=== PATIENT | female | born 1965 | race Caucasian/White ===

== ENCOUNTER 2018-09-19 22:36 | Emergency (ER) | payer MEDICARE, OTHER ==
[2018-09-19 22:44] VITALS: TEMP 98.3
[2018-09-19] MEDS ORDERED: MORPHINE SULFATE 2 MG/ML SYRINGE IM STA (23:58)
[2018-09-19] MEDS ORDERED: KETOROLAC 30 MG/ML 1 ML VIAL IM STA (23:58)
--- NOTE | 2018-09-20 00:38 | ED ---
Fall HPI - General Chief Complaint: Fall Stated Complaint: Fall Time Seen by Provider: 09/19/18 23:31 Source: patient, EMS Mode of arrival: EMS - History of Present Illness Initial Comments: 52-year-old female patient presents to the emergency department today for evaluation of neck pain following a fall this morning. Patient's states that around 0800 she slipped and fell on the ice. Patient states that she did strike her neck. Patient states she does have a history of extensive neck surgery and is concerned she may have dislodged something. Patient states she is having pain radiating down the right arm with this. Denies any numbness or tingling to her upper extremities. States that the pain from her neck is also radiating up into her head causing headache. She states that she did strike her head but denies any loss of consciousness. She denies any blurred or double vision. Denies any nausea or vomiting. Patient states that she did take muscle relaxers and Xanax as well as applied Biofreeze to the neck with out any relief of symptoms. She denies any other injuries. Patient denies any back pain, chest pain, shortness of breath, dizziness, weakness, abdominal pain , nausea, vomiting, or difficulties with bowel movements or urination. - Related Data Home Medications Medication Instructions Recorded Confirmed ALPRAZolam [Xanax] 1 mg PO TID PRN 12/23/15 09/19/18 Sertraline [Zoloft] 100 mg PO DAILY 12/23/15 09/19/18 ARIPiprazole [Abilify] 2 mg PO DAILY 09/19/18 09/19/18 Albuterol Inhaler [Ventolin Hfa 1 - 2 puff INHALATION RT-Q6H PRN 09/19/18 Inhaler] Cholecalciferol [Vitamin D3] 5,000 unit PO DAILY 09/19/18 09/19/18 Methocarbamol [Robaxin] 500 mg PO TID PRN 09/19/18 09/19/18 Phentermine HCl [Adipex-P] 37.5 mg PO DAILY PRN 09/19/18 09/19/18 Previous Rx's Medication Instructions Recorded Acetaminophen-Codeine 300-30mg 1 tab PO Q6H PRN #12 tablet 09/20/18 [Tylenol #3] Allergies Allergy/AdvReac Type Severity Reaction Status Date / Time Sulfa (Sulfonamide Allergy Rash/Hives Verified 09/19/18 22:48 Antibiotics) prochlorperazine AdvReac Seizure Verified 09/19/18 22:48 [From Compazine] prochlorperazine edisylate AdvReac Seizure Verified 09/19/18 22:48 [From Compazine] prochlorperazine maleate AdvReac Seizure Verified 09/19/18 22:48 [From Compazine] Review of Systems ROS Statement: Those systems with pertinent positive or pertinent negative responses have been documented in the HPI. ROS Other: All systems not noted in ROS Statement are negative. Past Medical History Past Medical History: No Reported History Additional Past Medical History / Comment(s): chronic back pain History of Any Multi-Drug Resistant Organisms: None Reported Past Surgical History: Back Surgery, Tonsillectomy, Uterine Ablation Additional Past Surgical History / Comment(s): neck surgery Past Psychological History: Anxiety, Depression, PTSD Smoking Status: Current every day smoker Past Alcohol Use History: Occasional Past Drug Use History: Marijuana General Exam Limitations: no limitations General appearance: alert, in no apparent distress, other (This is a well- developed, well-nourished adult female patient in no acute distress. Vital signs upon presentation are temperature 98.3F, pulse 89, respirations 18, blood pressure 138/84, pulse ox 95% on room air.) Eye exam: Present: normal appearance, PERRL, EOMI. Absent: scleral icterus, conjunctival injection, periorbital swelling ENT exam: Present: normal exam, normal oropharynx, mucous membranes moist Neck exam: Present: normal inspection, tenderness (Tenderness over C2-C3 area. No bony step-off or deformity noted.). Absent: meningismus, full ROM (C-collar in place), lymphadenopathy Respiratory exam: Present: normal lung sounds bilaterally. Absent: respiratory distress, wheezes, rales, rhonchi, stridor Cardiovascular Exam: Present: regular rate, normal rhythm, normal heart sounds. Absent: systolic murmur, diastolic murmur, rubs, gallop, clicks GI/Abdominal exam: Present: soft, normal bowel sounds. Absent: distended, tenderness, guarding, rebound, rigid Extremities exam: Present: normal inspection, full ROM, normal capillary refill , other (Skin to the upper and lower extremities is pink, warm, and dry. Cap refills less than 3 seconds. Pedal and posttibial pulses are 2+ and equal bilaterally. Radial pulses 2+ and equal bilaterally.). Absent: tenderness, pedal edema, joint swelling, calf tenderness Back exam: Present: normal inspection, other (Nontender, no step-off, no deformity to firm midline palpation of the thoracic and lumbar vertebrae. Full range of motion without pain or limitation.). Absent: vertebral tenderness Neurological exam: Present: alert, oriented X3, CN II-XII intact, other ( Strength in the upper extremities is 4/5.) Psychiatric exam: Present: normal affect, normal mood Skin exam: Present: warm, dry, intact, normal color. Absent: rash Course Vital Signs 09/19/18 09/20/18 09/20/18 22:41 01:10 02:06 Temperature 98.3 F Pulse Rate 89 79 76 Respiratory 18 18 16 Rate Blood Pressure 138/84 127/82 131/94 O2 Sat by Pulse 95 95 97 Oximetry Medical Decision Making - Medical Decision Making 52-year-old female patient presents to the emergency department today for evaluation of neck pain after experiencing a slip and fall accident this morning. Physical examination did reveal tenderness over the C2-C3 vertebral bodies. She had no bony step-off or deformity noted. She was neurologically intact with no focal deficits. She is neurovascularly intact in the upper extremities. CT brain and C-spine were obtained, showed no acute intracranial or cervical abnormalities. Cervical fusion hardware is intact. I did discuss findings and results with the patient. Symptoms are consistent with cervical strain. She does have muscle relaxer at home, we will prescribe Tylenol with codeine for pain control. She is instructed to continue gentle range of motion , heat application, and use of Biofreeze. She is instructed to follow-up with her orthopedic physician and her primary care physician for recheck as soon as possible. Return parameters were discussed in detail. She verbalizes understanding and agrees with this plan. - Radiology Data Radiology results: report reviewed, image reviewed Computed tomography scan of the brain and C-spine were obtained. Report was reviewed in its entirety. Impression by Dr. Scott shows no intracranial hemorrhage, mass effect, or calvarial fracture. No fracture or malalignment the cervical spine. Spondylosis. Status post anterior cervical disc fusion intervertebral disc space or C5 to C7. Disposition Clinical Impression: Cervical strain Disposition: HOME SELF-CARE Condition: Good Instructions (If sedation given, give patient instructions): Cervical Strain ( ED) Additional Instructions: Continue medications as directed. Follow up with your skin care specialist as soon as possible. Return to the emergency department for any new, worsening, or concerning symptoms. Prescriptions: Acetaminophen-Codeine 300-30mg [Tylenol #3] 1 tab PO Q6H PRN #12 tablet PRN Reason: Pain Is patient prescribed a controlled substance at d/c from ED?: No Referrals: Qasim Pablo DO [Primary Care Provider] - 1-2 days Time of Disposition: 02:01
--- NOTE | 2018-09-20 01:45 | CT ---
History: ITS.REASON CT Reason: Pain Exam: CT HEAD Without Contrast Technique more: CTDI is 45.2 mGy and DLP is 1028 mGy-cm. Technique more: This CT exam was performed using one or more of the following dose reduction techniques: automated exposure control, adjustment of the mA and/or kV according to patient size, and/or use of iterative reconstruction technique. Comparison: None available FINDINGS: No intracranial hemorrhage, mass effect or calvarial fracture. The ventricles are within limits and midline. The warren-white differentiation appears within limits. The paranasal sinuses, mastoids and orbits appear within limits. IMPRESSION: No intracranial hemorrhage, mass effect or calvarial fracture. Exam: CT C SPINE Without Contrast Technique more: CTDI is 8.6 mGy and DLP is 234.7 mGy-cm. Technique more: This CT exam was performed using one or more of the following dose reduction techniques: automated exposure control, adjustment of the mA and/or kV according to patient size, and/or use of iterative reconstruction technique. Comparison: None available FINDINGS: No fracture or malalignment. Spondylosis. Status post anterior cervical disc fusion and intervertebral disc spacers C5-C7. Visualized upper lungs appear clear. IMPRESSION: No fracture or malalignment. Spondylosis. Status post anterior cervical disc fusion and intervertebral disc spacers C5-C7.
[2018-09-20 02:08] VITALS: BP 131/94; PULSE 76; RESP 16
== END 2018-09-20 02:09 | disposition home or self-care (01) ==
LOC: EC 22:36 → MERGE 22:36 → EC 09-20 02:09
DX: S16.1XXA Strain of muscle, fascia and tendon at neck level, initial encounter (principal); R51 Headache; F41.9 Anxiety disorder, unspecified; F32.9 Major depressive disorder, single episode, unspecified; F43.10 Post-traumatic stress disorder, unspecified; F17.200 Nicotine dependence, unspecified, uncomplicated; Z98.890 Other specified postprocedural states; Z79.899 Other long term (current) drug therapy; Z88.2 Allergy status to sulfonamides; Z88.8 Allergy status to other drugs, medicaments and biological substances; W00.0XXA Fall on same level due to ice and snow, initial encounter; Y92.89 Other specified places as the place of occurrence of the external cause
CPT/HCPCS: 72125; 70450; 99284; 96372 ×2; J1885; J2270

== ENCOUNTER → 2019-04-12 | Outpatient (CLI) | payer MEDICARE ==
[2019-04-12 13:17] LABS: Basophils % (A) 1 %; Eosinophils # (A) 0.1 k/uL (0-0.7); Eosinophils % (A) 2 %; HCT 47.7 % (34.0-46.0); HGB 15.4 gm/dL (11.4-16.0); Lymphocytes % (A) 33 %; MCH 28.9 pg (25.0-35.0); MCHC 32.3 g/dL (31.0-37.0); MCV 89.6 fL (80.0-100.0); Mean Platelet Volume 7.3; Monocytes # (A) 0.2 k/uL (0-1.0); Monocytes % (A) 4 %; Neutrophils # (A) 3.6 k/uL (1.3-7.7); Neutrophils % (A) 59 %; Platelet Count 218 k/uL (150-450); RBC 5.32 m/uL (3.80-5.40); RDW 14.1 % (11.5-15.5); WBC 6.1 k/uL (3.8-10.6)
[2019-04-12 19:13] LABS: Vitamin D 25 Hydroxy 32.8 ng/mL (30.0-100.0)
[2019-04-12 19:49] LABS: Albumin 4.8 g/dL (3.80-4.90); Albumin/Globulin Ratio 2.53 (1.60-3.17); Anion Gap 8.8 mmol/L (4.00-12.00); Calcium 9.6 mg/dL (8.7-10.3); Carbon Dioxide 27.2 mmol/L (21.6-31.8); Chol/HDL Ratio 2.36; Globulin 1.9 g/dL (1.6-3.3); LDL Cholesterol,Calculated 107.4 mg/dL (0.0-131.0); Non-African American GFR(CKD) 72.5 (60.0-200.0); Potassium 4.7 mmol/L (3.5-5.5); Total Bilirubin 0.3 mg/dL (0.2-1.2); Total Protein 6.7 g/dL (6.2-8.2); Uric Acid 6.1 mg/dL (2.9-7.7); VLDL Calculation 31.6 mg/dL (5.00-40.00)
[2019-04-12 20:09] LABS: Hepatitis C IgG Antibody Non-Reactive (Non-Reactive)
[2019-04-12 20:47] LABS: Hemoglobin A1C 5.8 % (4.0-6.0)
== END | disposition home or self-care (01) ==
LOC: LABWHC1 11:31
PROVIDERS: ATTEND Internal Medicine
DX: Z00.00 Encounter for general adult medical examination without abnormal findings (principal); E55.9 Vitamin D deficiency, unspecified; R79.9 Abnormal finding of blood chemistry, unspecified; R53.83 Other fatigue; E88.9 Metabolic disorder, unspecified; E78.9 Disorder of lipoprotein metabolism, unspecified; E07.9 Disorder of thyroid, unspecified; R73.09 Other abnormal glucose; Z20.9 Contact with and (suspected) exposure to unspecified communicable disease; Z11.59 Encounter for screening for other viral diseases
CPT/HCPCS: 36415; 80053; 80061; 82306; 83036; 84439; 84443; 84550; 85025; 86803

== ENCOUNTER 2019-12-09 05:03 | Emergency (ER) | payer MEDICARE ==
[2019-12-09 05:09] VITALS: BP 143/81; PULSE 85; RESP 18; TEMP 97.7
[2019-12-09] MEDS ORDERED: KETOROLAC 60 MG/2 ML VIAL IM STA (05:40)
[2019-12-09] MEDS ORDERED: ORPHENADRINE 30 MG/ML 2 ML VIAL IM STA (05:40)
--- NOTE | 2019-12-09 05:44 | ED ---
Back Pain [facility] - General Chief Complaint: Back Pain/Injury Stated Complaint: back/neck pain Time Seen by Provider: 12/09/19 05:26 Source: patient Limitations: no limitations - History of Present Illness Initial Comments: This patient is a 54-year-old woman who presents to be evaluated for bilateral low back pain. She states it has been coming on and getting progressively worse over the past day. The day prior she states she had done some yard work for some older neighbors, and she believes that this provoke the pain. She states that the muscles in her back feels tight and she is not able to bend or move well. The patient denies any radiation to the legs. No numbness or weakness of the legs. No saddle anesthesia. There is no abdominal pain. No change in bladder or bowel movements. MD Complaint: back pain Onset/Timin -: days(s) Similar Symptoms Previously: Yes Place: home Severity: severe Quality: aching Consistency: constant Improves With: none Worsens With: sitting upright Associated Symptoms: denies other symptoms - Related Data Home Medications Medication Instructions Recorded Confirmed ALPRAZolam [Xanax] 1 mg PO TID PRN 12/23/15 09/19/18 Sertraline [Zoloft] 100 mg PO DAILY 12/23/15 09/19/18 ARIPiprazole [Abilify] 2 mg PO DAILY 09/19/18 09/19/18 Albuterol Inhaler (Mhu) [Ventolin 1 - 2 puff INHALATION RT-Q6H PRN 09/19/18 09/19/18 Hfa Inhaler] Cholecalciferol [Vitamin D3] 5,000 unit PO DAILY 09/19/18 09/19/18 Methocarbamol [Robaxin] 500 mg PO TID PRN 09/19/18 09/19/18 Phentermine HCl [Adipex-P] 37.5 mg PO DAILY PRN 09/19/18 09/19/18 Previous Rx's Medication Instructions Recorded Acetaminophen-Codeine 300-30mg 1 tab PO Q6H PRN #12 tablet 09/20/18 [Tylenol #3] Ibuprofen [Motrin] 600 mg PO Q8HR PRN #20 tab 12/09/19 Methocarbamol [Robaxin-750] 750 mg PO TID PRN #30 tablet 05/11/20 Allergies Allergy/AdvReac Type Severity Reaction Status Date / Time Sulfa (Sulfonamide Allergy Rash/Hives Verified 12/09/19 05:09 Antibiotics) prochlorperazine AdvReac Seizure Verified 12/09/19 05:09 [From Compazine] prochlorperazine edisylate AdvReac Seizure Verified 12/09/19 05:09 [From Compazine] prochlorperazine maleate AdvReac Seizure Verified 12/09/19 05:09 [From Compazine] Review of Systems ROS Statement: Those systems with pertinent positive or pertinent negative responses have been documented in the HPI. ROS Other: All systems not noted in ROS Statement are negative. Constitutional: Denies: fever, chills Respiratory: Denies: cough, dyspnea Cardiovascular: Denies: chest pain, palpitations, edema Gastrointestinal: Denies: abdominal pain, nausea, vomiting, diarrhea, constipation Genitourinary: Denies: dysuria, frequency, hematuria Musculoskeletal: Reports: as per HPI, back pain Skin: Denies: rash Neurological: Denies: headache, weakness, numbness, paresthesias Past Medical History Past Medical History: No Reported History Additional Past Medical History / Comment(s): chronic back pain History of Any Multi-Drug Resistant Organisms: None Reported Past Surgical History: Back Surgery, Tonsillectomy, Uterine Ablation Additional Past Surgical History / Comment(s): neck surgery Past Psychological History: Anxiety, Depression, PTSD Smoking Status: Current every day smoker Past Alcohol Use History: Occasional Past Drug Use History: Marijuana General Exam Limitations: no limitations General appearance: alert, in no apparent distress Head exam: Present: atraumatic, normocephalic Neck exam: Present: normal inspection, full ROM. Absent: tenderness, meningismus Respiratory exam: Present: normal lung sounds bilaterally. Absent: respiratory distress, wheezes, rales, rhonchi, stridor Cardiovascular Exam: Present: regular rate, normal rhythm, normal heart sounds. Absent: systolic murmur, diastolic murmur, rubs, gallop GI/Abdominal exam: Present: soft, normal bowel sounds. Absent: tenderness, guar ding, rebound, rigid, mass, pulsatile mass, hernia Extremities exam: Present: normal inspection, normal capillary refill. Absent: pedal edema, calf tenderness Back exam: Present: normal inspection, muscle spasm, paraspinal tenderness. Absent: CVA tenderness (R), CVA tenderness (L) Neurological exam: Present: alert, reflexes normal. Absent: motor sensory deficit Skin exam: Present: warm, dry, intact, normal color. Absent: rash Course Vital Signs 12/09/19 05:04 Temperature 97.7 F Pulse Rate 85 Respiratory 18 Rate Blood Pressure 143/81 O2 Sat by Pulse 99 Oximetry Disposition Clinical Impression: Mechanical back pain Disposition: HOME SELF-CARE Condition: Good Instructions (If sedation given, give patient instructions): Acute Low Back Pain (ED) Prescriptions: Ibuprofen [Motrin] 600 mg PO Q8HR PRN #20 tab PRN Reason: Pain Methocarbamol [Robaxin-750] 750 mg PO TID PRN #30 tablet PRN Reason: pain Is patient prescribed a controlled substance at d/c from ED?: No Referrals: Qasim Pablo DO [Primary Care Provider] - 1-2 days
== END 2019-12-09 06:14 | disposition home or self-care (01) ==
LOC: EC 05:03
DX: M54.5 Low back pain (principal); M62.830 Muscle spasm of back; F41.9 Anxiety disorder, unspecified; F32.9 Major depressive disorder, single episode, unspecified; F43.10 Post-traumatic stress disorder, unspecified; F17.200 Nicotine dependence, unspecified, uncomplicated; Z79.899 Other long term (current) drug therapy; Z98.890 Other specified postprocedural states; Z88.2 Allergy status to sulfonamides; Z88.8 Allergy status to other drugs, medicaments and biological substances
CPT/HCPCS: 99283; 96372 ×2; J2360; J1885

== ENCOUNTER 2019-12-10 07:03 | Emergency (ER) | payer MEDICARE ==
[2019-12-10] MEDS ORDERED: DIAZEPAM 5 MG/ML 2 ML INJ IM ONE (07:26)
[2019-12-10] MEDS ORDERED: KETOROLAC 60 MG/2 ML VIAL IM STA (07:26)
[2019-12-10 07:47] VITALS: RESP 16
--- NOTE | 2019-12-10 07:47 | ED ---
General Adult HPI - General Chief complaint: Abdominal Pain Stated complaint: Neck pain Time Seen by Provider: 12/10/19 07:05 Source: patient, RN notes reviewed Mode of arrival: wheelchair Limitations: no limitations - History of Present Illness Initial comments: This is a 54-year-old female who presents emergency Department complaining of back pain. Patient states she was here yesterday but the Motrin upsets her stomach and the muscle relaxant she was given causes or diarrhea. Patient states 2 days ago she was outside doing some yard work that she know she shouldn't do because she has a chronic back issue and now 2 days in row she woke up and had lower back pain that goes up worse both sides of her spine to her shoulders. Patient states she knows it's muscular but it's very hard to move without pain and quite a bit of pain. Patient denies any numbness or focal weakness. Patient denies any direct trauma. Patient denies any fall. - Related Data Home Medications Medication Instructions Recorded Confirmed ALPRAZolam [Xanax] 1 mg PO TID PRN 12/23/15 09/19/18 Sertraline [Zoloft] 100 mg PO DAILY 12/23/15 09/19/18 ARIPiprazole [Abilify] 2 mg PO DAILY 09/19/18 09/19/18 Albuterol Inhaler (Mhu) [Ventolin 1 - 2 puff INHALATION RT-Q6H PRN 09/19/18 09/19/18 Hfa Inhaler] Cholecalciferol [Vitamin D3] 5,000 unit PO DAILY 09/19/18 09/19/18 Methocarbamol [Robaxin] 500 mg PO TID PRN 09/19/18 09/19/18 Phentermine HCl [Adipex-P] 37.5 mg PO DAILY PRN 09/19/18 09/19/18 Previous Rx's Medication Instructions Recorded Acetaminophen-Codeine 300-30mg 1 tab PO Q6H PRN #12 tablet 09/20/18 [Tylenol #3] Ibuprofen [Motrin] 600 mg PO Q8HR PRN #20 tab 12/09/19 Methocarbamol [Robaxin-750] 750 mg PO TID PRN #30 tablet 12/09/19 Cyclobenzaprine [Flexeril] 10 mg PO TID #20 tab 12/10/19 Allergies Allergy/AdvReac Type Severity Reaction Status Date / Time Sulfa (Sulfonamide Allergy Rash/Hives Verified 12/09/19 05:09 Antibiotics) prochlorperazine AdvReac Seizure Verified 12/09/19 05:09 [From Compazine] prochlorperazine edisylate AdvReac Seizure Verified 12/09/19 05:09 [From Compazine] prochlorperazine maleate AdvReac Seizure Verified 12/09/19 05:09 [From Compazine] Review of Systems ROS Statement: Those systems with pertinent positive or pertinent negative responses have been documented in the HPI. ROS Other: All systems not noted in ROS Statement are negative. Past Medical History Past Medical History: No Reported History Additional Past Medical History / Comment(s): chronic back pain History of Any Multi-Drug Resistant Organisms: None Reported Past Surgical History: Back Surgery, Tonsillectomy, Uterine Ablation Additional Past Surgical History / Comment(s): neck surgery Past Psychological History: Anxiety, Depression, PTSD Smoking Status: Current every day smoker Past Alcohol Use History: Occasional Past Drug Use History: Marijuana General Exam - General Exam Comments Initial Comments: GENERAL: Patient is well-developed and well-nourished. Patient is nontoxic and well- hydrated and is in mild distress. ENT: Neck is soft and supple. No significant lymphadenopathy is noted. Oropharynx is clear. Moist mucous membranes. EYES: The sclera were anicteric and conjunctiva were pink and moist. Extraocular movements were intact and pupils were equal round and reactive to light. Eyelids were unremarkable. PULMONARY: Unlabored respirations. Good breath sounds bilaterally. No audible rales rhonchi or wheezing was noted. CARDIOVASCULAR: There is a regular rate and rhythm without any murmurs gallops or rubs. ABDOMEN: Soft and nontender with normal bowel sounds. SKIN: Skin is clear with no lesions or rashes and otherwise unremarkable. NEUROLOGIC: Patient is alert and oriented x3. Cranial nerves II through XII are grossly intact. Motor and sensory are also intact. Normal speech, volume and content. Symmetrical smile. MUSCULOSKELETAL: Normal extremities with adequate strength and full range of motion. Patient has paraspinous muscle tenderness on palpation there is no tenderness along the spine. Patient's full range motion of her neck. LYMPHATICS: No significant lymphadenopathy is noted PSYCHIATRIC: Normal psychiatric evaluation. Limitations: no limitations Course Vital Signs 12/10/19 12/10/19 07:26 07:40 Temperature 97.7 F Pulse Rate 119 H 86 Respiratory 18 16 Rate Blood Pressure 120/104 112/67 O2 Sat by Pulse 96 99 Oximetry Medical Decision Making - Medical Decision Making Patient received Valium and Toradol was doing much better. I went into the room twice to evaluate and she was sleeping both times. When I awoke her she stated she felt much improved. Disposition Clinical Impression: Mechanical back pain Disposition: HOME SELF-CARE Condition: Good Instructions (If sedation given, give patient instructions): Acute Low Back Pain (ED) Prescriptions: Cyclobenzaprine [Flexeril] 10 mg PO TID #20 tab Is patient prescribed a controlled substance at d/c from ED?: No Referrals: Qasim Pablo DO [Primary Care Provider] - 1-2 days Time of Disposition: 08:48
[2019-12-10 07:49] VITALS: TEMP 97.7
[2019-12-10 09:32] VITALS: BP 123/87; PULSE 62
== END 2019-12-10 09:30 | disposition home or self-care (01) ==
LOC: EC 07:03
DX: M54.9 Dorsalgia, unspecified (principal); R10.9 Unspecified abdominal pain; M54.2 Cervicalgia; F41.9 Anxiety disorder, unspecified; F32.9 Major depressive disorder, single episode, unspecified; F17.200 Nicotine dependence, unspecified, uncomplicated; Z79.899 Other long term (current) drug therapy; Z88.2 Allergy status to sulfonamides; Z88.8 Allergy status to other drugs, medicaments and biological substances
CPT/HCPCS: 99283; 96372 ×2; J3360; J1885

== ENCOUNTER → 2021-02-26 | Outpatient (CLI) | payer MEDICARE ==
[2021-02-26 10:02] LABS: Appearance,Urine Clear (Clear); Bacteria,Urine Rare /hpf; Bilirubin,Urine Negative (Negative); Blood,Urine Trace (Negative); Color,Urine Yellow; Glucose,Urine (UA) Negative (Negative); Hyaline Casts,Urine 7 /lpf (0-2); Ketones,Urine Negative (Negative); Leukocyte Esterase,Urine Small (Negative); Mucus,Urine Occasional /hpf; Nitrite,Urine Negative (Negative); PH, Urine 5.5 (5.0-8.0); Protein,Urine Trace (Negative); RBC,Urine 3 /hpf (0-5); Specific Gravity,Urine 1.026 (1.001-1.035); Squamous Epithelial Cell,Urine 3 /hpf (0-4); Urobilinogen,Urine <2.0 mg/dL (<2.0); WBC,Urine 7 /hpf (0-5)
[2021-02-26 15:54] LABS: Basophils # (A) 0.03 X 10*3/uL (0.00-0.10); Basophils % (A) 0.5 %; Eosinophils # (A) 0.08 X 10*3/uL (0.04-0.35); Eosinophils % (A) 1.3 %; HCT 45.7 % (37.2-46.3); Lymphocytes # (A) 1.72 X 10*3/uL (0.90-5.00); MCH 28.9 pg (27.0-32.0); MCHC 30.6 g/dL (32.0-37.0); MCV 94.4 fL (80.0-97.0); Mean Platelet Volume 11.5 fL (9.5-12.2); Monocytes # (A) 0.49 X 10*3/uL (0.20-1.00); Monocytes % (A) 7.7 %; Neutrophils # (A) 4.01 X 10*3/uL (1.80-7.70); Platelet Count 183 X 10*3/uL (140-440); RBC 4.84 X 10*6/uL (4.10-5.20); RDW 14.6 % (11.5-14.5); WBC 6.36 X 10*3/uL (4.50-10.00)
[2021-02-26 20:33] LABS: African American GFR (CKD) 95.5 (60.0-200.0); Albumin 4.8 g/dL (3.80-4.90); Albumin/Globulin Ratio 2.09 (1.60-3.17); Anion Gap 10.6 mmol/L (4.00-12.00); BUN/Creat Ratio 28.75 Ratio (12.00-20.00); Calcium 9.2 mg/dL (8.7-10.3); Carbon Dioxide 26.4 mmol/L (21.6-31.8); Chol/HDL Ratio 2.33; Globulin 2.3 g/dL (1.6-3.3); LDL Cholesterol,Calculated 100.8 mg/dL (0.0-131.0); Non-African American GFR(CKD) 82.4 (60.0-200.0); Potassium 4.1 mmol/L (3.5-5.5); Total Bilirubin 0.7 mg/dL (0.3-1.2); Total Protein 7.1 g/dL (6.2-8.2); Uric Acid 3.8 mg/dL (2.9-7.7); VLDL Calculation 27.2 mg/dL (5.00-40.00)
[2021-02-26 22:42] LABS: Hemoglobin A1C 5.2 % (4.0-6.0)
== END | disposition home or self-care (01) ==
LOC: LABWHC1 08:40
PROVIDERS: ATTEND Internal Medicine
DX: Z00.00 Encounter for general adult medical examination without abnormal findings (principal); Z13.820 Encounter for screening for osteoporosis; Z12.12 Encounter for screening for malignant neoplasm of rectum; Z12.31 Encounter for screening mammogram for malignant neoplasm of breast; Z12.11 Encounter for screening for malignant neoplasm of colon; E55.9 Vitamin D deficiency, unspecified; R53.83 Other fatigue; R39.15 Urgency of urination; R79.9 Abnormal finding of blood chemistry, unspecified; R68.89 Other general symptoms and signs
CPT/HCPCS: 36415; 80053; 80061; 81001; 82306; 83036; 84439; 84443; 84550; 85025

== ENCOUNTER 2022-04-26 01:56 | Emergency (ER) | payer MEDICARE ==
[2022-04-26 02:06] VITALS: RESP 16
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
[2022-04-26 14:21] VITALS: BP 150/86; PULSE 85; TEMP 98
== END 2022-04-26 14:15 | disposition home or self-care (01) ==
LOC: EC 01:56
DX: F43.20 Adjustment disorder, unspecified (principal); Z88.2 Allergy status to sulfonamides; Z88.1 Allergy status to other antibiotic agents; Z88.9 Allergy status to unspecified drugs, medicaments and biological substances
CPT/HCPCS: 82075; 99283

== ENCOUNTER 2022-12-18 06:09 | Emergency (ER) | payer MEDICARE ==
[2022-12-18] MEDS ORDERED: LORazepam 2 MG/ML INJ IV STA (06:32)
[2022-12-18] MEDS ORDERED: ONDANSETRON 4 MG/2 ML VIAL IVP STA (06:32)
[2022-12-18] MEDS ORDERED: SODIUM CHLORIDE 0.9% 1,000 ML IV STA (06:32)
[2022-12-18] MEDS ORDERED: SODIUM CHLORIDE 0.9% 500 ML 500 ML IV STA (06:32)
[2022-12-18 06:49] LABS: Basophils % (A) 0 %; Eosinophils # (A) 0.1 k/uL (0-0.7); Eosinophils % (A) 1 %; HCT 45.6 % (34.0-46.0); HGB 15.4 gm/dL (11.4-16.0); Lymphocytes # (A) 1.4 k/uL (1.0-4.8); Lymphocytes % (A) 11 %; MCH 27.9 pg (25.0-35.0); MCHC 33.8 g/dL (31.0-37.0); MCV 82.3 fL (80.0-100.0); Mean Platelet Volume 8.4; Monocytes # (A) 0.5 k/uL (0-1.0); Monocytes % (A) 4 %; Neutrophils # (A) 10.4 k/uL (1.3-7.7); Neutrophils % (A) 83 %; Platelet Count 238 k/uL (150-450); RBC 5.55 m/uL (3.80-5.40); RDW 13.2 % (11.5-15.5); WBC 12.5 k/uL (3.8-10.6)
[2022-12-18 06:50] LABS: ALT 25 U/L (4-34); AST 35 U/L (14-36); African American GFR (CKD) 70 (>60 ml/min/1.73 sqM); Albumin 5.5 g/dL (3.5-5.0); Alcohol <10 mg/dL; Alkaline Phosphatase 72 U/L (38-126); Anion Gap 20 mmol/L; Blood Urea Nitrogen 29 mg/dL (7-17); Calcium 10.5 mg/dL (8.4-10.2); Carbon Dioxide 23 mmol/L (22-30); Chloride 89 mmol/L (98-107); Glucose 169 mg/dL (74-99); Lipase 136 U/L (23-300); Magnesium 1.5 mg/dL (1.6-2.3); Non-African American GFR(CKD) 61 (>60 ml/min/1.73 sqM); Potassium 4.1 mmol/L (3.5-5.1); Sodium 132 mmol/L (137-145); Total Bilirubin 1.9 mg/dL (0.2-1.3); Total Protein 8.7 g/dL (6.3-8.2)
[2022-12-18] MEDS ORDERED: MAGNESIUM SULFATE-D5W PMX 1 GM in DEXTROSE/WATER 1 100ML.BAG IVPB ONE (06:56)
--- NOTE | 2022-12-18 06:58 | ED ---
Nausea/Vomiting/Diarrhea HPI - General Chief complaint: Nausea/Vomiting/Diarrhea Stated complaint: vomiting Time Seen by Provider: 12/18/22 06:27 Source: patient, RN notes reviewed, old records reviewed Mode of arrival: wheelchair Limitations: no limitations - History of Present Illness Initial comments: 57-year-old female presents emergency Department chief complaint of nausea vomiting, dehydration. Patient states she's been vomiting for last 5 days. Patient states that she has been out of medication state that she had some substitute medication states is not helping. Patient states she is out of her Adderall, Xanax and Zoloft. Patient states her pharmacy did not have her meds ready. Patient states that he has been cramping, vomiting all night. She does complain of intermittent abdominal discomfort but not localized. No fevers or chills no chest pain or shortness of breath. Patient denies any dysuria hematuria patient states she's had minimal stool output - Related Data Home Medications Medication Instructions Recorded Confirmed Sertraline [Zoloft] 150 mg PO DAILY 12/23/15 04/26/22 ALPRAZolam [Xanax] 1 mg PO Q6H PRN 04/26/22 04/26/22 Albuterol Sulfate [Albuterol 1 - 2 puff INHALATION RT-QID PRN 04/26/22 04/26/22 Sulfate Hfa] Dextroamphetamine/Amphetamine 30 mg PO DAILY 04/26/22 04/26/22 [Adderall Xr 30 mg Capsule] Levothyroxine Sodium [Synthroid] 25 mcg PO DAILY 04/26/22 04/26/22 tiZANidine [Zanaflex] 4 mg PO DAILY PRN 04/26/22 04/26/22 Previous Rx's Medication Instructions Recorded Ondansetron Odt [Zofran Odt] 4 mg PO Q8HR PRN #10 tab 12/18/22 Allergies Allergy/AdvReac Type Severity Reaction Status Date / Time Sulfa (Sulfonamide Allergy Rash/Hives Verified 04/26/22 02:06 Antibiotics) bacitracin AdvReac Rash/Hives Verified 04/26/22 02:06 [From Neosporin ([id number])] neomycin AdvReac Rash/Hives Verified 04/26/22 02:06 [From Neosporin ([id number])] polymyxin B AdvReac Rash/Hives Verified 04/26/22 02:06 [From Neosporin ([id number])] prochlorperazine AdvReac Seizure Verified 04/26/22 02:06 [From Compazine] prochlorperazine edisylate AdvReac Seizure Verified 04/26/22 02:06 [From Compazine] prochlorperazine maleate AdvReac Seizure Verified 04/26/22 02:06 [From Compazine] Review of Systems ROS Statement: Those systems with pertinent positive or pertinent negative responses have been documented in the HPI. ROS Other: All systems not noted in ROS Statement are negative. Past Medical History Past Medical History: No Reported History, Thyroid Disorder Additional Past Medical History / Comment(s): chronic back pain History of Any Multi-Drug Resistant Organisms: None Reported Past Surgical History: Back Surgery, Tonsillectomy, Uterine Ablation Additional Past Surgical History / Comment(s): neck surgery Past Psychological History: Anxiety, Depression, PTSD Past Alcohol Use History: Occasional Past Drug Use History: Marijuana General Exam Limitations: no limitations General appearance: alert, in no apparent distress Head exam: Present: atraumatic, normocephalic, normal inspection Eye exam: Present: normal appearance, PERRL, EOMI. Absent: scleral icterus, conjunctival injection, periorbital swelling ENT exam: Present: normal exam, normal oropharynx, mucous membranes moist Neck exam: Present: normal inspection, full ROM. Absent: tenderness, meningismus, lymphadenopathy Respiratory exam: Present: normal lung sounds bilaterally. Absent: respiratory distress, wheezes, rales, rhonchi, stridor Cardiovascular Exam: Present: regular rate, normal rhythm, normal heart sounds. Absent: systolic murmur, diastolic murmur, rubs, gallop, clicks GI/Abdominal exam: Present: soft, tenderness (Minimal diffuse), normal bowel sounds. Absent: distended, guarding, rebound, rigid Neurological exam: Present: alert Skin exam: Present: warm, dry, intact, normal color. Absent: rash Course Vital Signs 12/18/22 12/18/22 12/18/22 06:20 06:24 07:30 Temperature 98.3 F Pulse Rate 99 104 H Respiratory 20 18 Rate Blood Pressure 145/107 163/96 149/97 O2 Sat by Pulse 98 99 Oximetry Medical Decision Making - Medical Decision Making Was pt. sent in by a medical professional or institution (, ANNALISA, ENGINE SETTER, urgent care, hospital, or senior living...) When possible be specific @ -No Did you speak to anyone other than the patient for history (EMS, parent, family, police, friend...)? What history was obtained from this source @ -No Did you review nursing and triage notes (agree or disagree)? Why? @ -I reviewed and agree with nursing and triage notes Were old charts reviewed (outside hosp., previous admission, EMS record, old EKG, old radiological studies, urgent care reports/EKG's, senior living records)? Report findings @ -Laboratory studies and medications Differential Diagnosis (chest pain, altered mental status, abdominal pain women, abdominal pain men, vaginal bleeding, weakness, fever, dyspnea, syncope, headache, dizziness, GI bleed, back pain, seizure, CVA, palpatations, mental health, musculoskeletal)? @ -Differential Abdominal Pain Women: Appendicitis, Cholecystitis, diverticulosis, ischemic bowel, pancreatitis, hepatitis, UTI, gastroenteritis, AAA, incarcerated hernia, bowel obstruction, constipation, inflammatory bowel, hepatitis, peptic ulcer disease, splenic infarction, perforated viscus, vulvitis, ovarian torsion, PID, kidney stone, placenta abruption, this is not meant to be an all-inclusive listble EKG interpreted by me (3pts min.). @ -None X-rays interpreted by me (1pt min.). @ -None done CT interpreted by me (1pt min.). @ -None done U/S interpreted by me (1pt. min.). @ -None done What testing was considered but not performed or refused? (CT, X-rays, U/S, labs)? Why? @ -None What meds were considered but not given or refused? Why? @ -None Did you discuss the management of the patient with other professionals (professionals i.e. , ANNALISA, ENGINE SETTER, lab, RT, psych nurse, social work specialist, turning sander operator, teacher, real estate officer, mental health case manager)? Give summary @ -No Was smoking cessation discussed for >3mins.? @ -No Was critical care preformed (if so, how long)? @ -No Were there social determinants of health that impacted care today? How? (Homelessness, low income, unemployed, alcoholism, drug addiction, transportation, low edu. Level, literacy, decrease access to med. care, usp, rehab)? @ -No Was there de-escalation of care discussed even if they declined (Discuss DNR or withdrawal of care, Hospice)? DNR status @ -No What co-morbidities impacted this encounter? (DM, HTN, Smoking, COPD, CAD, Cancer, CVA, ARF, Chemo, Hep., AIDS, mental health diagnosis, sleep apnea, morbid obesity)? @ -Hypothyroidism, ADHD, anxiety Was patient admitted / discharged? Hospital course, mention meds given and route, prescriptions, significant lab abnormalities, going to OR and other pertinent info. @ -Discharged patient's laboratory studies reveal Mild hypomagnesemia, , no ketones no signs of dehydration. Patient does have THC noted on drug screen. Laboratory studies otherwise unremarkable. Patient hydrated with 2 L of fluid, given magnesium, antiemetics feels improved. Patient discharged with antiemet ics return parameters were discussed. Undiagnosed new problem with uncertain prognosis? @ -No Drug Therapy requiring intensive monitoring for toxicity (Heparin, Nitro, Insulin, Cardizem)? @ -No Were any procedures done? @ -No Diagnosis/symptom? @ -Nausea vomiting Acute, or Chronic, or Acute on Chronic? @ -Acute Uncomplicated (without systemic symptoms) or Complicated (systemic symptoms)? @ -Uncomplicated Side effects of treatment? @ -No Exacerbation, Progression, or Severe Exacerbation? @ -No Poses a threat to life or bodily function? How? (Chest pain, [place], [place], pneumonia, PE, COPD, DKA, ARF, appy, cholecystitis, CVA, Diverticulitis, Homicidal, Suicidal, threat to staff... and all critical care pts) @ -No - Lab Data Result diagrams: 12/18/22 06:34 12/18/22 06:34 Lab Results 12/18/22 12/18/22 12/18/22 Range/Units 06:34 06:34 08:03 WBC 12.5 H (3.8-10.6) k/uL RBC 5.55 H (3.80-5.40) m/uL Hgb 15.4 (11.4-16.0) gm/dL Hct 45.6 (34.0-46.0) % MCV 82.3 (80.0-100.0) fL MCH 27.9 (25.0-35.0) pg MCHC 33.8 (31.0-37.0) g/dL RDW 13.2 (11.5-15.5) % Plt Count 238 (150-450) k/uL MPV 8.4 Neutrophils % 83 % Lymphocytes % 11 % Monocytes % 4 % Eosinophils % 1 % Basophils % 0 % Neutrophils # 10.4 H (1.3-7.7) k/uL Lymphocytes # 1.4 (1.0-4.8) k/uL Monocytes # 0.5 (0-1.0) k/uL Eosinophils # 0.1 (0-0.7) k/uL Basophils # 0.0 (0-0.2) k/uL Sodium 132 L (137-145) mmol/L Potassium 4.1 (3.5-5.1) mmol/L Chloride 89 L (98-107) mmol/L Carbon Dioxide 23 (22-30) mmol/L Anion Gap 20 mmol/L BUN 29 H (7-17) mg/dL Creatinine 1.02 (0.52-1.04) mg/dL Est GFR (CKD-EPI)AfAm 70 (>60 ml/min/1.73 sqM) Est GFR (CKD-EPI)NonAf 61 (>60 ml/min/1.73 sqM) Glucose 169 H (74-99) mg/dL Calcium 10.5 H (8.4-10.2) mg/dL Magnesium 1.5 L (1.6-2.3) mg/dL Total Bilirubin 1.9 H (0.2-1.3) mg/dL AST 35 (14-36) U/L ALT 25 (4-34) U/L Alkaline Phosphatase 72 (38-126) U/L Total Protein 8.7 H (6.3-8.2) g/dL Albumin 5.5 H (3.5-5.0) g/dL Lipase 136 (23-300) U/L Urine Color Light Yellow Urine Appearance Clear (Clear) Urine pH 6.5 (5.0-8.0) Ur Specific Carver 1.004 (1.001-1.035) Urine Protein Negative (Negative) Urine Glucose (UA) Negative (Negative) Urine Ketones Negative (Negative) Urine Blood Negative (Negative) Urine Nitrite Negative (Negative) Urine Bilirubin Negative (Negative) Urine Urobilinogen <2.0 (<2.0) mg/dL Ur Leukocyte Esterase Negative (Negative) Urine Opiates Screen Not Detected (NotDetected) Ur Oxycodone Screen Not Detected (NotDetected) Urine Methadone Screen Not Detected (NotDetected) Ur Propoxyphene Screen Not Detected (NotDetected) Ur Barbiturates Screen Not Detected (NotDetected) U Tricyclic Antidepress Not Detected (NotDetected) Ur Phencyclidine Scrn Not Detected (NotDetected) Ur Amphetamines Screen Not Detected (NotDetected) U Methamphetamines Scrn Not Detected (NotDetected) U Benzodiazepines Scrn Not Detected (NotDetected) Urine Cocaine Screen Not Detected (NotDetected) U Marijuana (THC) Screen Detected H (NotDetected) Serum Alcohol <10 mg/dL Disposition Clinical Impression: Nausea & vomiting Disposition: HOME SELF-CARE Condition: Stable Instructions (If sedation given, give patient instructions): Acute Nausea and Vomiting (ED) Additional Instructions: Please return to the Emergency Department if symptoms worsen or any other concerns. Prescriptions: Ondansetron Odt [Zofran Odt] 4 mg PO Q8HR PRN #10 tab PRN Reason: Nausea Is patient prescribed a controlled substance at d/c from ED?: No Referrals: Qasim Pablo DO [Primary Care Provider] - 1-2 days Time of Disposition: 08:31
[2022-12-18] MEDS ORDERED: SODIUM CHLORIDE 0.9% 500 ML 500 ML IV ONE (08:03)
[2022-12-18] MEDS ORDERED: FAMOTIDINE 20 MG/2 ML VIAL IV STA (08:04)
[2022-12-18 08:11] LABS: Appearance,Urine Clear (Clear); Bilirubin,Urine Negative (Negative); Blood,Urine Negative (Negative); Color,Urine Light Yellow; Glucose,Urine (UA) Negative (Negative); Ketones,Urine Negative (Negative); Leukocyte Esterase,Urine Negative (Negative); Nitrite,Urine Negative (Negative); PH, Urine 6.5 (5.0-8.0); Protein,Urine Negative (Negative); Specific Gravity,Urine 1.004 (1.001-1.035); Urobilinogen,Urine <2.0 mg/dL (<2.0)
[2022-12-18 08:21] LABS: Amphetamine Screen,Urine Not Detected (NotDetected); Barbiturate Screen,Urine Not Detected (NotDetected); Benzodiazepines Screen,Urine Not Detected (NotDetected); Cocaine Screen,Urine Not Detected (NotDetected); Methadone Screen, Urine Not Detected (NotDetected); Opiate Screen,Urine Not Detected (NotDetected); Oxycodone Screen, Urine Not Detected (NotDetected); Phencyclidine Screen,Urine Not Detected (NotDetected); Tricyclic Antidepressant,Urine Not Detected (NotDetected); Urn Cannabinoid Scrn Detected (NotDetected)
[2022-12-18 08:48] VITALS: BP 156/87; PULSE 99; RESP 17
[2022-12-18] MEDS ORDERED: ONDANSETRON 4 MG ODT STARTER PACK 2 TAB BTL PO STA (08:50)
[2022-12-18 08:55] VITALS: TEMP 97.6
== END 2022-12-18 09:04 | disposition home or self-care (01) ==
LOC: EC 06:09
DX: R11.2 Nausea with vomiting, unspecified (principal); E07.9 Disorder of thyroid, unspecified; F41.9 Anxiety disorder, unspecified; F32.A Depression, unspecified; F12.90 Cannabis use, unspecified, uncomplicated; Z79.890 Hormone replacement therapy; Z79.899 Other long term (current) drug therapy; Z88.2 Allergy status to sulfonamides; Z88.6 Allergy status to analgesic agent; Z88.8 Allergy status to other drugs, medicaments and biological substances
CPT/HCPCS: 36415; 80053; 83690; 83735; 85025; 81003; 80306; 99284; 96365; 96375 ×3; 96361 ×2; G0480; J2060; J2405; J3475; S0119; 80320

== ENCOUNTER → 2023-09-08 | Outpatient (CLI) | payer MEDICARE ==
[2023-09-08 16:57] LABS: Basophils # (A) 0.05 X 10*3/uL (0.00-0.10); Basophils % (A) 0.8 %; Eosinophils # (A) 0.07 X 10*3/uL (0.04-0.35); Eosinophils % (A) 1.2 %; Lymphocytes % (A) 28.3 %; MCH 26.1 pg (27.0-32.0); MCHC 30.2 g/dL (32.0-37.0); MCV 86.3 FL (80.0-97.0); Mean Platelet Volume 10.4 FL (9.5-12.2); Monocytes # (A) 0.32 X 10*3/uL (0.20-1.00); Monocytes % (A) 5.3 %; NRBC Per 100 WBC 0 X 10*3/uL (0.00-0.01); Neutrophils # (A) 3.84 X 10*3/uL (1.80-7.70); Neutrophils % (A) 64.1 %; Platelet Count 280 X 10*3/uL (140-440); RBC 4.98 X 10*6/uL (4.10-5.20); RDW 14.5 % (11.5-14.5)
[2023-09-08 17:02] LABS: ALT 12 U/L (8-44); AST 16 U/L (13-35); Albumin 4.6 g/dL (3.8-4.9); Alkaline Phosphatase 70 U/L (41-126); Blood Urea Nitrogen 12.4 mg/dL (9.0-27.0); Calcium 9.6 mg/dL (8.7-10.3); Carbon Dioxide 28.8 mmol/L (21.6-31.8); Chloride 100 mmol/L (96-109); Chol/HDL Ratio 3.44 Ratio; Globulin 2.7 g/dL (1.6-3.3); Glucose 115 mg/dL (70-110); LDL Cholesterol,Calculated 145.1 mg/dL (0.0-131.0); Potassium 5.3 mmol/L (3.5-5.5); Sodium 140 mmol/L (135-145); T4, Free (Free Thyroxine) 0.95 ng/dL (0.80-1.80); Total Bilirubin <0.2 mg/dL (0.3-1.2); Total Protein 7.3 g/dL (6.2-8.2); Uric Acid 4.3 mg/dL (2.9-7.7)
[2023-09-08 17:07] LABS: Appearance,Urine Cloudy (Clear); Bilirubin,Urine Negative (Negative); Blood,Urine Negative (Negative); Color,Urine Yellow (Yellow); Ketones,Urine Negative (Negative); Nitrite,Urine Negative (Negative); Urobilinogen,Urine 0.2 E.U./DL
[2023-09-08 17:19] LABS: Bacteria,Urine None Seen (None Seen); Calcium Oxalate Crystals,Urine Present (None Seen)
== END | disposition home or self-care (01) ==
LOC: LABWHC1 09:31
PROVIDERS: ATTEND Internal Medicine
DX: Z00.00 Encounter for general adult medical examination without abnormal findings (principal); Z13.820 Encounter for screening for osteoporosis; E55.9 Vitamin D deficiency, unspecified; R68.89 Other general symptoms and signs; R79.9 Abnormal finding of blood chemistry, unspecified; R53.83 Other fatigue; R39.15 Urgency of urination
CPT/HCPCS: 36415; 80053; 80061; 81001; 82306; 83036; 84439; 84443; 84550; 85025